=== PATIENT | female | born 1990 | race Caucasian/White ===

== ENCOUNTER 2025-01-22 10:07 | Emergency (ER) | payer OTHER ==
[~2025-01-22] VITALS: Ht 165.1 cm; Wt 68.0 kg
[2025-01-22 10:10] VITALS: O2SAT 99
[2025-01-22 10:54] LABS: BASOPHILS % 0.4 % (0.0-2.0); LYMPHOCYTES % 15.4 % (20.0-50.0); MEAN CORPUSCULAR HEMOGLOBIN 28.4 pg (28.0-32.0); MEAN CORPUSCULAR HGB CONC 33.2 g/dL (31.0-37.0); MEAN CORPUSCULAR VOLUME 85.4 fL (81.0-99.0); MEAN PLATELET VOLUME 7.8 fl (7.4-10.4); MONOCYTES % 6.5 % (2.0-8.0); NEUTROPHILS % 75.7 % (40.0-76.0); PLATELET 310 x1000/uL (130-400); RED BLOOD CELL COUNT 3.52 mill/uL (4.2-5.4); RED CELL DISTRIBUTION WIDTH 13.5 % (11.6-14.6); WHITE BLOOD COUNT 11.9 x1000/uL (4.5-11.0)
[2025-01-22] MEDS: ACETAMINOPHEN 1000MG/100ML 100 ML IV ONE (10:58)
[2025-01-22] MEDS: SODIUM CHLORIDE 0.9% 1,000 ML IV ONE (10:58)
[2025-01-22 11:05] LABS: CHLORIDE 103 mEq/L (98-107); POTASSIUM 3.4 mEq/L (3.5-5.1); SODIUM 135 mEq/L (136-145)
[2025-01-22 11:06] LABS: CALCIUM 8.1 mg/dL (8.7-10.4); CARBON DIOXIDE 25 mEq/L (21-32)
[2025-01-22 11:11] LABS: CREATININE 0.6 mg/dL (0.6-1.0); GLUCOSE 107 mg/dL (70-105); UREA NITROGEN BLOOD 6 mg/dL (9-23)
[2025-01-22 11:25] LABS: B-HCG QUANTITATIVE 93114 mIU/mL (<6)
[2025-01-22 12:05] VITALS: BP 97/73; PULSE 83; RESP 19; TEMP 36.4; O2SAT 99
== END 2025-01-22 12:27 | disposition short-term general hospital (02) ==
LOC: ER 10:07
DX: O26.893 Other specified pregnancy related conditions, third trimester (principal); R10.30 Lower abdominal pain, unspecified; Z3A.33 33 weeks gestation of pregnancy; Z79.899 Other long term (current) drug therapy
CPT/HCPCS: 99285; 96365; 76805; 80048; 84702; 85025; 86850; 86900; 86901; 36415; J7030; J0131